=== PATIENT | female | born 1975 | race Caucasian/White ===

== ENCOUNTER → 2016-08-01 | Outpatient (CLI) | payer BC ==
[~2016-08-01] MED LIST: CETI10TA57 PO; CITA20TA4 PO; KETO-22 PO; NAPR220T29 PO; NITR100C3 PO; ONDA-42 SL; PHEN200T27 PO; TMSL.4C PO; TRM50T PO; [UNRECOGNIZED DRUG - CODE] PO
--- NOTE | 2016-08-01 16:54 | Diagnostic Imaging Report ---
INDICATION: Chronic pelvic pain. COMPARISON: None. DISCUSSION: Transabdominal and transvaginal sonographic evaluation of the pelvis was performed. There appear to be two endometrial horns present which could be seen with an arcuate, septate, or bicornate uterus. The uterus is mildly elongated measuring 11.3 x 7.3 x 6.6 cm. Partially exophytic posterior fibroid measures 2.3 x 2.3 x 3.7 cm. Normal endometrial thickness measuring 0.9 cm. The right ovary was not visualized, possibly obscured by bowel. The left ovary is normal in echotexture and size with normal color Doppler blood flow. The left ovary measures 3.2 x 2.8 x 3.8 cm. No abnormal adnexal mass or fluid. IMPRESSION: 1. Uterine fibroid. Mild enlargement of the uterus. Suspect underlying uterine anomaly. Dictated by: Dictated on workstation # [id number]
== END ==
LOC: RAD 15:20
PROVIDERS: ATTEND Obstetrics & Gynecology
DX: R10.2 Pelvic and perineal pain (principal); N94.5 Secondary dysmenorrhea; N93.8 Other specified abnormal uterine and vaginal bleeding; D25.1 Intramural leiomyoma of uterus; Z98.890 Other specified postprocedural states
CPT/HCPCS: 76830; 76856

== ENCOUNTER 2016-09-04 12:28 | Outpatient (CLI) | payer BC ==
[2016-09-04] MEDS ORDERED: CHOL30SP SL (12:40)
[2016-09-04] MEDS ORDERED: CHLO25TA22 PO (12:40)
[2016-09-04] MEDS ORDERED: CYAN250014 PO (12:40)
[2016-09-04] MEDS ORDERED: CYAN100097 SL (12:46)
[2016-09-04 13:11] LABS: EOSINOPHILS % (AUTO) 1 % (0-10); LYMPHOCYTES % (AUTO) 27 % (12-44); MEAN CORPUSCULAR HEMOGLOBIN 31 PG (25-34); MEAN CORPUSCULAR HGB CONC 33 G/DL (32-36); MEAN CORPUSCULAR VOLUME 95 FL (80-99); MEAN PLATELET VOLUME 9.2 FL (7.4-10.4); MONOCYTES % (AUTO) 7 % (0-12); NEUTROPHILS % (AUTO) 65 % (42-75); PLATELET COUNT 191 10^3/uL (130-400); RED BLOOD COUNT 4.12 10^6/uL (4.35-5.85); RED CELL DISTRIBUTION WIDTH 13.5 % (10.0-14.5); WHITE BLOOD COUNT 5.9 10^3/uL (4.3-11.0)
[2016-09-04 13:12] LABS: BASOPHILS % (AUTO) 0 % (0-10); EOSINOPHILS # (AUTO) 0.1 10^3/uL (0.0-0.3); LYMPHOCYTES # (AUTO) 1.6 X 10^3 (1.0-4.0); MONOCYTES # (AUTO) 0.4 X 10^3 (0.0-1.0); NEUTROPHILS # (AUTO) 3.8 X 10^3 (1.8-7.8)
[2016-09-07] MEDS ORDERED: OXYC-471 PO (13:58)
[2016-09-07] MEDS ORDERED: DOCU100C37 PO (13:58)
[2016-09-07] MEDS ORDERED: IBUP-1773 PO (13:58)
[2016-09-07] MEDS ORDERED: SIME80TA16 PO (13:58)
== END 2016-09-04 13:00 | disposition home or self-care (01) ==
LOC: PREOP 12:28
PROVIDERS: ATTEND Obstetrics & Gynecology
DX: Z01.812 Encounter for preprocedural laboratory examination (principal); Z11.2 Encounter for screening for other bacterial diseases; R10.2 Pelvic and perineal pain; D25.9 Leiomyoma of uterus, unspecified; N94.10 Unspecified dyspareunia
CPT/HCPCS: 36415; 84703; 85025; 86850; 86900; 86901; 87081

== ENCOUNTER 2016-09-07 09:30 | Day surgery (SDC) | payer BC ==
[~2016-09-07] VITALS: Ht 162.6 cm; Wt 100.2 kg
[~2016-09-07 09:30] MED LIST changes: +CHLO25TA22 PO; +CHOL30SP SL; +CYAN100097 SL; +CYAN250014 PO
--- OUTSIDE RECORDS SUMMARY | 2016-09-07 09:34 | XMS REPORT ---
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
--- OUTSIDE RECORDS SUMMARY | 2016-09-07 09:35 | XMS REPORT | Continuity of Care Document ---
Author Author [facility] Organization [facility] Address Unknown Phone Unavailable Allergies Active Description Code Type Severity Reaction Onset Reported/Identified Relationship to Patient Clinical Status Yes hydrocodone [id number] Drug Allergy Unknown N/A 06/23/2013 Yes tramadol [id number] Drug Allergy Unknown ITCHING 06/27/2013 Medications Problems Date Dx Coded Attending Type Code Diagnosis Diagnosed By 08/21/2014 ERNESTO AMES MD Ot 218.9 08/21/2014 ERNESTO AMES MD Ot 592.0 06/10/2015 SESAR CAMPOS MD Ot M54.2 06/10/2015 SESAR CAMPOS MD Ot M54.5 06/10/2015 SESAR CAMPOS MD Ot M54.6 06/23/2015 SESAR CAMPOS MD Ot M54.2 CERVICALGIA 06/23/2015 SESAR CAMPOS MD Ot M54.5 LOW BACK PAIN 06/23/2015 SESAR CAMPOS MD Ot M54.6 PAIN IN THORACIC SPINE 08/01/2016 ERNESTO AMES MD Ot 218.9 UTERINE LEIOMYOMA NOS 08/01/2016 KWAKU KOHLER, ERNESTO Carr Ot 592.0 CALCULUS OF KIDNEY 08/01/2016 SESAR CAMPOS MD Ot M54.2 CERVICALGIA 08/01/2016 SESAR CAMPOS MD Ot M54.5 LOW BACK PAIN 08/01/2016 SESAR CAMPOS MD Ot M54.6 PAIN IN THORACIC SPINE 08/04/2016 CAMDEN MTZ DO S Ot D25.1 INTRAMURAL LEIOMYOMA OF UTERUS 08/04/2016 CAMDEN MTZ DO S Ot N93.8 OTHER SPECIFIED ABNORMAL UTERINE AND VAG 08/04/2016 CAMDEN MTZ DO Ot N94.5 SECONDARY DYSMENORRHEA 08/04/2016 CAMDEN MTZ DO Ot R10.2 PELVIC AND PERINEAL PAIN 08/04/2016 CAMDEN MTZ DO Ot Z98.890 OTHER SPECIFIED POSTPROCEDURAL STATES 08/04/2016 FENECH DO, CAMDEN Jansen Ot D25.1 INTRAMURAL LEIOMYOMA OF UTERUS 08/04/2016 ALEXUSECH DO, CAMDEN S Ot N93.8 OTHER SPECIFIED ABNORMAL UTERINE AND VAG 08/04/2016 ALEXUSECH DOCAMDEN S Ot N94.5 SECONDARY DYSMENORRHEA 08/04/2016 ALEXUSECH DOCAMDEN S Ot R10.2 PELVIC AND PERINEAL PAIN 08/04/2016 FENECH DO, CAMDEN S Ot Z98.890 OTHER SPECIFIED POSTPROCEDURAL STATES 08/04/2016 ALXEUSECH DOCAMDEN S Ot D25.1 INTRAMURAL LEIOMYOMA OF UTERUS 08/04/2016 ALEXUSECH DO, CAMDEN S Ot N93.8 OTHER SPECIFIED ABNORMAL UTERINE AND VAG 08/04/2016 ALEXUSECH DO, CMADEN S Ot N94.5 SECONDARY DYSMENORRHEA 08/04/2016 ALEXUSECH DOCAMDEN Ot R10.2 PELVIC AND PERINEAL PAIN 08/04/2016 ALEXUSECH DOCAMDEN Ot Z98.890 OTHER SPECIFIED POSTPROCEDURAL STATES 08/16/2016 SMITH DOCAMDEN S Ot D25.1 INTRAMURAL LEIOMYOMA OF UTERUS 08/16/2016 ALEXUSECH DO, CAMDEN S Ot N93.8 OTHER SPECIFIED ABNORMAL UTERINE AND VAG 08/16/2016 ALEXUSECH DO, CAMDEN S Ot N94.5 SECONDARY DYSMENORRHEA 08/16/2016 ALEXUSECH DO, CAMDEN S Ot R10.2 PELVIC AND PERINEAL PAIN 08/16/2016 FENECH DO, CAMDEN Jansen Ot Z98.890 OTHER SPECIFIED POSTPROCEDURAL STATES Procedures Results Encounters ACCT No. Visit Date/Time Discharge Status Pt. Type Provider Facility Loc./Unit Complaint [id number] 07/16/2014 09:33:00 2014 23:59:59 CLS Outpatient KWAKU KOHLER, ERNESTO Del Tor[facility] RAD RIGHT FLANK PAIN [id number] 07/02/2013 14:04:00 2013 00:01:00 DIS Outpatient [id number] 07/01/2013 07:48:00 2013 12:20:00 DIS Outpatient [id number] 06/27/2013 12:47:00 2013 23:59:59 CLS Outpatient [id number] 06/25/2013 09:19:00 2013 23:59:59 CLS Outpatient [id number] 06/23/2013 01:23:00 2013 03:07:00 DIS Emergency [id number] 09/07/2016 11:00:00 [facility]EN [facility]read[facility],FIBROIDS,DYSMENORRHEA [id number] 09/04/2016 12:30:00 PEN Preadmit CAMDEN MTZ DO [facility] PREOP ROBOTIC HYSTERECTOMY POSS. BSO [id number] 08/01/2016 15:20:00 ACT Outpatient CAMDEN MTZ DO [facility] RAD R10.2 CHRONIC PELVIC PAIN [id number] 06/10/2015 12:16:00 ACT Outpatient BETH KOHLER, SESAR Hurtado [facility] RAD NECK PAIN, LBP, THORACIALGIA,SCIATICA
[2016-09-07] MEDS ORDERED: ceFAZolin 2 GM/NS 50 ML IV ONE (09:45)
[2016-09-07] MEDS ORDERED: metroNIDAZOLE 500 MG/100 ML IVPB (PRE-MIX) IV ONE (09:45)
[2016-09-07] MEDS ORDERED: CATHETER FLUSH 10 ML SYR IV PRN (09:45)
[2016-09-07 09:58] VITALS: BP 140/98
[2016-09-07] MEDS: LACTATED RINGERS 1,000 ML IV PRN ×3 (10:05→14:10)
[2016-09-07] MEDS ORDERED: MIDAZOLAM 2 MG/2 ML (VERSED) VIAL IV ONE (10:15)
[2016-09-07] MEDS ORDERED: ONDANSETRON 4 MG/2 ML (SDV) Z0FRAN IV ONE (10:15)
--- NOTE | 2016-09-07 10:41 | Progress Note-Pre Operative ---
Pre-Operative Progress Note H&P Reviewed The H&P was reviewed, patient examined and no changes noted. Date Seen by Provider: Sep 07, 2016 Time Seen by Provider: 10:40 Date H&P Reviewed: Sep 07, 2016 Time H&P Reviewed: 10:30 Pre-Operative Diagnosis: Dyspareunia, Dysmenorrhea, Bicornuate Uterus, Secondary Dysmenorrhea,BMI 38 CAMDEN MTZ DO Sep 07, 2016 10:41 am
[2016-09-07] MEDS ORDERED: fentaNYL INJECTION 100 MCG/2 ML AMP ONE ×2 (11:20→12:21)
[2016-09-07] MEDS ORDERED: BUPIVACAINE 0.25% 30 ML (SENSORCAINE) VIAL ONE (11:20)
[2016-09-07] MEDS ORDERED: MIDAZOLAM 2 MG/2 ML (VERSED) VIAL ONE (11:20)
[2016-09-07] MEDS ORDERED: SEVOFLURANE (ULTANE) 15 ML INHAL SOLN ONE ×8 (11:22→13:57)
[2016-09-07] MEDS ORDERED: proPOfol 200 MG/20 ML (DIPRIVAN) VIAL IV ONE (11:22)
[2016-09-07] MEDS ORDERED: LIDOCAINE 2% 20 ML (XYLOCAINE) VIAL ONE (11:22)
[2016-09-07] MEDS ORDERED: DEXAMETHASONE PF 10 MG/ML (DECADRON) VIAL ONE (11:22)
[2016-09-07] MEDS ORDERED: ROCURONIUM 50 MG/5 ML (ZEMURON) VIAL IV ONE (11:33)
[2016-09-07] MEDS ORDERED: morphine INJ 10 MG/ML 1ML (SYR OR VIAL) ONE (13:41)
--- NOTE | 2016-09-07 13:56 | Discharge Inst-Women's Service ---
Discharge Inst-Women's Serv Depart Medication/Instructions New, Converted or Re-Newed RX: RX on Chart Consults/Follow Up Additional Follow Up: Yes Orders/Referrals Dr. Little in 7-10 days and in 8 weeks Activity Activity: Activity as Tolerated Driving Instructions: No Driving for 1 Week NO SMOKING: NO SMOKING Nothing Inside Vagina: No Douching, No Anthon, No Tampons Diet Discharge Diet: No Restrictions Symptoms to Report to : Bleeding Excessive, Pain Increased, Fever Over 101 Degrees F, Vaginal Bleeding Increase, Questions/Concerns For Any Problems or Questions: Contact Your Physician Skin/Wound Care Infection Signs and Symptoms: Increased Redness, Foul Odor of Wound, Increased Drainage, Skin Itchy or Has a Rash, Increased Swelling, Temperature Above 101 F Stitches/Gely/Dermabond: Dermabond, Care of Stitches Bathing Instructions: CAMDEN Lazo DO Sep 07, 2016 13:56
[2016-09-07] MEDS ORDERED: DOCU100C37 PO (13:58)
[2016-09-07] MEDS ORDERED: IBUP-1773 PO (13:58)
[2016-09-07] MEDS ORDERED: OXYC-471 PO (13:58)
[2016-09-07] MEDS ORDERED: SIME80TA16 PO (13:58)
[2016-09-07] MEDS ORDERED: ONDANSETRON 4 MG/2 ML (SDV) Z0FRAN IV PRN (14:00)
[2016-09-07] MEDS ORDERED: SIMETHICONE 80 MG (MYLICON) CHEW PO PRN (14:00)
[2016-09-07] MEDS ORDERED: DOCUSATE SODIUM 100 MG (COLACE) CAP PO PRN (14:00)
[2016-09-07] MEDS ORDERED: ZOLPIDEM 5 MG (AMBIEN) TAB PO PRN (14:00)
[2016-09-07] MEDS ORDERED: fentaNYL INJECTION 100 MCG/2 ML AMP IVP PRN (14:00)
[2016-09-07] MEDS ORDERED: MEPERIDINE (DEMEROL) INJ 50 MG/ML IVP PRN (14:00)
[2016-09-07] MEDS ORDERED: CHLORASEPTIC LOZENGE MM PRN (14:00)
[2016-09-07] MEDS ORDERED: ANTACID SUSP 30 ML UDC (MYLANTA) PO PRN (14:00)
[2016-09-07] MEDS: morphine INJ 10 MG/ML 1ML (SYR OR VIAL) IVP PRN ×2 (14:06→14:13)
[2016-09-07] MEDS ORDERED: PROMETHAZINE INJ 25 MG/ML (PHENERGAN) AMP ONE (14:08)
[2016-09-07] MEDS: PROMETHAZINE INJ 25 MG/ML (PHENERGAN) AMP IVP PRN ×2 (14:15→14:43)
--- NOTE | 2016-09-07 14:20 | Progress Note-Post Operative ---
Post-Operative Progess Note Surgeon (s)/Mustanger (s) Surgeon CAMDEN MTZ DO Mustanger: Marta ePña Pre-Operative Diagnosis Dyspareunia, Dysmenorrhea, Bicornuate Uterus, Secondary Dysmenorrhea,BMI 38 Post-Operative Diagnosis Enlarged uterus Procedure & Operative Findings Date of Procedure 09/07/16 Procedure Performed/Findings Patient was taken to the operating room where general anesthesia was found to be adequate. She is placed in dorsal lithotomy position prepped and draped in the normal sterile fashion. A timeout was performed and a Liang catheter was placed using sterile technique. Bimanual examination revealed a enlarged uterus proximal told to 14 week size no adnexal fullness or masses appreciated. A weighted speculum was inserted patient's vagina and a right angled retractor is used to visualize the cervix. It is grasped at the 12 o'clock position using a long Allis clamp. I then gently sound the uterine cavity was 8 cm I then selected an 8 cm Mahsa uterine manipulator tip and a 3-1/2 a colpotomy ring and advance this into the uterus deploying the endometrial balloon and advancing the colpotomy ring around the vaginal fornix. I then removed all other attachments from the patient's vagina, perform a change of gloves and take my attention to the abdomen. Here I infiltrate the infraumbilical area using quarter percent Marcaine, make an 8 mm incision with a knife, and direct a varies needle through the incision until intraperitoneal placement was confirmed using the saline drop test. I then recognize a pressure of 2 mmHg, using CO2 gas I infiltrate to a pressure of 15 mmHg at which point I removed the varies needle and introduce 88 mm blunt da Javier camera trocar. Once this is in place unable to confirm intraperitoneal placement using the da Javier laparoscope. I then placed 2 lateral trochars approximate 8 cm lateral to my infraumbilical trocar, and the skin is infiltrated using quarter percent Marcaine, incision is made with the knife, and the trochars are directed under direct visualization of the laparoscope. Once the trochars in place and the patient placed in steep Trendelenburg and and able to visualize all the planes of dissection to perform the procedure. The uterus is bulky and enlarged, the right adnexa is absent no fallopian tube and ovary. The left ovary is grossly normal on inspection, the left fallopian tube appears normal as well. The da Javier robot is brought in and docked in the appropriate fashion. I placed the vessel sealer and the left hand and monopolar gail in the right hand. I then take my place at the operative console, and performed the following dissection bilaterally. Starting at the round ligament I bipolar cauterized this and transected using the vessel sealer. On the left side I created a window in the mesosalpinx and take this dissection amputating the blood supply of the fallopian tube distally to the ampullary distal tip of the fallopian tube. I then grasped the utero-ovarian ligament on the left bipolar cauterized this and transected using the vessel sealer. On both sides I grasped the broad ligament bipolar cauterized and transected using the vessel sealer down to the level of the lower uterine segment. At this point I separate the anterior posterior leaflets of the broad ligament. The anterior leaflet is taken around to the anterior vaginal fornix, the posterior leaflet was taken down to the posterior vaginal fornix. I didn't perform a colpotomy at 12 and 6 o'clock using the monopolar gail. This allows me to skeletonize the uterine vessels which were then bipolar cauterized and transected using the vessel sealer. I then proceed with my colpotomy circumferentially using the monopolar gail amputating the cervix away from the vaginal fornix. The entire uterus and left fallopian tube were then removed through the vagina without difficulty. I then closed the vaginal cuff using 2-0 Vicryl suture in a [id number] fashion in the lateral vaginal apices, colposuspension in them to the uterosacral ligaments. The remainder of the vaginal cuff is closed using 20V lock in running fashion. There is no active bleeding noted from any my dissection planes, at which point I undocked the da Javier robot remove its instruments and proceed with the remainder of the case laparoscopically. I copiously irrigated the pelvis using normal saline as no active bleeding noted from any my dissection planes. I placed FloSeal hemostatic agent overall my planes of dissection and have the patient taken out of steep Trendelenburg. At which point I removed the lateral trochars under direct visualization of the laparoscope. The infraumbilical trocar is left in place to release insufflation and to introduce 10 mL's of quarter percent Marcaine into the peritoneum for postoperative pain management. This trocar is then removed, all 3 sites are then closed using 4-0 Monocryl and interrupted subcuticular stitches and then covered by Dermabond. Band-Aids are placed over these incisions. Liang catheter is left in place. The patient tolerated the procedure well and was taken to the recovery area in stable condition. Lap and sponge count is correct at the end of the procedure instrument count is correct as well. 2 g of Ancef and 500 mg of Flagyl given preoperatively for infection prophylaxis. Anesthesia Type GETA Estimated Blood Loss Estimated blood loss (mL): 50 Specimens/Packing Specimens Removed uterus left fallopian tube CAMDEN MTZ DO Sep 07, 2016 14:20
[2016-09-07 15:27] VITALS: BP 134/89
[2016-09-07] MEDS: LACTATED RINGERS 1,000 ML IV SCH ×2 (17:12→20:06)
[2016-09-07 17:17] VITALS: BP 136/84
[2016-09-07] MEDS: KETOROLAC 30 MG/ML VIAL IV PRN (18:45)
[2016-09-07 20:45] VITALS: BP 98/56
[2016-09-07] MEDS: oxyCODONE/APAP 5/325MG (PERCOCET 5) TABLET PO PRN (23:41)
[2016-09-08] MEDS: KETOROLAC 30 MG/ML VIAL IV PRN (00:54)
[2016-09-08 00:56] VITALS: BP 111/65
[2016-09-08 04:17] VITALS: BP 124/66
[2016-09-08] MEDS: LACTATED RINGERS 1,000 ML IV SCH (06:07)
[2016-09-08] MEDS ORDERED: IBUPROFEN 600 MG (MOTRIN) TAB PO PRN (06:30)
[2016-09-08 07:55] VITALS: BP 109/72
[2016-09-08] MEDS: oxyCODONE/APAP 5/325MG (PERCOCET 5) TABLET PO PRN (08:18)
[2016-09-08 09:25] VITALS: BP 109/72
== END 2016-09-08 09:25 | disposition home or self-care (01) ==
LOC: SDC 09:30 → WS 14:55 → SDC 09-08 09:25
PROVIDERS: ATTEND Obstetrics & Gynecology
DX: N94.10 Unspecified dyspareunia; Q51.3 Bicornate uterus; D25.1 Intramural leiomyoma of uterus; E66.9 Obesity, unspecified; F32.9 Major depressive disorder, single episode, unspecified; Z79.899 Other long term (current) drug therapy; Z68.38 Body mass index [BMI] 38.0-38.9, adult; N94.5 Secondary dysmenorrhea
CPT/HCPCS: 88307; 94664; 96361; 96375; 96376

== ENCOUNTER → 2019-12-19 | Outpatient (CLI) | payer BC ==
[~2019-12-19] MED LIST changes: +DOCU100C37 PO; +IBUP-1773 PO; +OXYC-471 PO; +SIME80TA16 PO
--- NOTE | 2019-12-19 10:29 | Diagnostic Imaging Report ---
Indication: Routine screening. No prior mammogram is available for comparison. This is a baseline study. 2-D and 3-D bilateral screening mammography was performed with CAD. Scattered fibroglandular densities are identified bilaterally. No mass or malignant appearing microcalcifications are seen. Axillae are unremarkable. IMPRESSION: BI-RADS Category 1 No mammographic features suspicious for malignancy are identified. ACR BI-RADS Category 1: Negative. Result letter will be mailed to the patient. Note: At least 10% of breast cancer is not imaged by mammography. Dictated by: Dictated on workstation # [id number]
== END ==
LOC: RAD 08:30
PROVIDERS: ATTEND Obstetrics & Gynecology
DX: Z12.31 Encounter for screening mammogram for malignant neoplasm of breast (principal)
CPT/HCPCS: 77063; 77067

== ENCOUNTER 2020-09-05 13:35 | Emergency (ER) | payer BC ==
[~2020-09-05] VITALS: Ht 162 cm; Wt 99.7 kg
[~2020-09-05 13:35] MED LIST changes: -OXYC-471 PO; +OXYC1TAB11 PO
[2020-09-05 14:13] LABS: BASOPHILS % (AUTO) 1 % (0-10); EOSINOPHILS % (AUTO) 1 % (0-10); HEMATOCRIT 41 % (35-52); HEMOGLOBIN 13.6 g/dL (11.5-16.0); LYMPHOCYTES # (AUTO) 1.3 10^3/uL (1.0-4.0); LYMPHOCYTES % (AUTO) 24 % (12-44); MEAN CORPUSCULAR HEMOGLOBIN 32 pg (25-34); MEAN CORPUSCULAR HGB CONC 33 g/dL (32-36); MEAN CORPUSCULAR VOLUME 95 fL (80-99); MEAN PLATELET VOLUME 9.4 fL (9.0-12.2); MONOCYTES # (AUTO) 0.4 10^3/uL (0.0-1.0); MONOCYTES % (AUTO) 7 % (0-12); NEUTROPHILS # (AUTO) 3.8 10^3/uL (1.8-7.8); NEUTROPHILS % (AUTO) 68 % (42-75); PLATELET COUNT 224 10^3/uL (130-400); WHITE BLOOD COUNT 5.6 10^3/uL (4.3-11.0)
[2020-09-05] MEDS ORDERED: LACTATED RINGERS 1,000 ML IV SCH (14:15)
[2020-09-05] MEDS ORDERED: IOHEXOL 350 MG/ML 100 ML (OMNIPAQUE 350) VIAL IV ONE (14:15)
[2020-09-05] MEDS ORDERED: HOLD METFORMIN - RECEIVED CONTRAST 20 ML VIAL IV SCH (14:15)
[2020-09-05] MEDS ORDERED: NS 100 ML (IVPB) BAG IV ONE (14:15)
[2020-09-05] MEDS ORDERED: CATHETER FLUSH 10 ML SYR IV PRN (14:15)
[2020-09-05 14:18] LABS: CHLORIDE 106 MMOL/L (98-107); POTASSIUM 3.3 MMOL/L (3.6-5.0); SODIUM 144 MMOL/L (135-145)
[2020-09-05 14:19] LABS: CALCIUM 9.4 MG/DL (8.5-10.1); GLUCOSE 109 MG/DL (70-105)
[2020-09-05 14:21] LABS: CARBON DIOXIDE 24 MMOL/L (21-32)
[2020-09-05 14:23] LABS: CREATININE SERUM 0.73 MG/DL (0.60-1.30); GFR ESTIMATED > 60
[2020-09-05 14:24] LABS: BUN/CREATININE RATIO 16
--- NOTE | 2020-09-05 14:31 | ED EENT ---
History of Present Illness General Chief Complaint: Eye Problems Stated Complaint: R EYE REDNESS/PAIN Nursing Triage Note: PT PRESENTS TO ED WITH COMPLAITNS OF R EYE REDNESS AND L PUPIL DILATED AND SLUGGISH. PT DOES REPORTS SHE HIT HER R EYE SUNDAY. Source: patient Exam Limitations: no limitations (YEIMI HARRISON APRN) History of Present Illness Date Seen by Provider: Sep 05, 2020 Time Seen by Provider: 14:24 Initial Comments To ER with left pupillary dilation. She was struck in the right eye yesterday while helping her . She was struck by a piece of equipment and had minimal discomfort at the time, noticed a subconjunctival hemorrhage later in the evening. Has some faint discomfort in the right eye very mild. She wears glasses and cannot typically see very well without them. 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 She is not so worried about the right eye knowing that it is only a subconjunctival hemorrhage but the left eye being dilated is concerning. She has had headaches for the past few weeks with a h istory longstanding of hypertension. However she was started on chlorthalidone and Norvasc about a month ago and for the past 2 weeks has been headache free. No other neurologic deficit that she has noticed. Timing/Duration: abrupt Severity: moderate Location: eye (L) Prearrival Treatment: no prearrival treatment Associated Symptoms: denies symptoms (YEIMI HARRISON APRN) Allergies and Home Medications Allergies Coded Allergies: hydrocodone (Unverified Allergy, Unknown, 06/23/13) sulfamethoxazole (Verified Allergy, Unknown, NAUSEA, 09/04/16) tramadol (Unverified Allergy, Unknown, ITCHING , 06/27/13) trimethoprim (Verified Allergy, Unknown, NAUSEA, 09/04/16) Home Medications Cetirizine Hcl 10 Mg Tablet, 10 MG PO PRN PRN for ALLERGIES, (Reported) Chlorthalidone 25 Mg Tablet, 25 MG PO DAILY, (Reported) Cholecalciferol (Vitamin D3) 30 Ml Guild.susp, 30 ML SL DAILY, (Reported) Cyanocobalamin (Vitamin B-12) 1,000 Mcg/1 Ml Drops, 1,000 MCG SL DAILY, (Reported) Docusate Sodium 100 Mg Capsule, 100 MG PO BID PRN for CONSTIPATION-1ST LINE Prescribed by: CAMDEN MTZ on 09/07/161357 Ibuprofen 600 Mg Tablet, 600 MG PO Q6H PRN for PAIN-MODERATE Prescribed by: CAMDEN MTZ on 09/07/161357 Oxycodone HCl/Acetaminophen 1 Each Tablet, 2 TAB PO Q4H PRN for PAIN-MODERATE Prescribed by: CAMDEN MTZ on 09/07/161357 Simethicone 80 Mg Tab.chew, 40 MG PO TID PRN for INDIGESTION 2ND LINE Prescribed by: CAMDEN MTZ on 09/07/161357 Patient Home Medication List Home Medication List Reviewed: Yes (YEIMI HARRISON APRN) Review of Systems Review of Systems Constitutional: see HPI Eyes: See HPI Ears: No Symptoms Reported Nose: no symptoms reported Mouth: no symptoms reported Throat: no symptoms reported Respiratory: no symptoms reported Cardiovascular: no symptoms reported Musculoskeletal: no symptoms reported Skin: no symptoms reported Neurological: No Symptoms Reported Hematologic/Lymphatic: No Symptoms Reported (YEIMI HARRISON APRN) Past Oihpxng-Vzipwd-Vuxfag Hx Patient Social History Tobacco Use?: No Substance use?: No Alcohol Use?: No Pt feels they are or have been: No (YEIMI HARRISON APRN) Seasonal Allergies Seasonal Allergies: Yes (SOMETIMES) (YEIMI HARRISON APRN) Past Medical History Section Hypertension Reproductive Disorders: Yes Sexually Transmitted Disease: No HIV/AIDS: No Kidney Stones Anxiety, Depression Adverse Reaction/Blood Tranf: No (YEIMI HARRISON APRN) Physical Exam Vital Signs Vital Signs - First Documented 09/05/20 13:42 Pulse 90 Resp 20 B/P (MAP) 177/119 (138) Pulse Ox 97 (MARCI HERRERA MD) Height, Weight, BMI Height: 5'4.00" Weight: 221lbs. 0.0oz. 100.242172jg; 37.00 BMI Method: General Appearance: WD/WN, no apparent distress Eyes: left eye other (The left pupil is dilated at about 6 mm though it is reactive to light. To the lateral aspect of the right eye beginning at the limbus and extending laterally and inferiorly down to the lateral canthus is a subconjunctival hemorrhage. There is no hyphema. The right pupil is also reactive and there is not any photophobia. Extraocular muscles are intact.); bilateral eye PERRL, bilateral eye EOMI Ears: bilateral ear auricle normal, bilateral ear canal normal, bilateral ear TM normal Neck: non-tender, full range of motion Respiratory: no respiratory distress, no accessory muscle use Neurologic/Psychiatric: alert, normal mood/affect, oriented x 3 Skin: normal color, warm/dry (YEIMI HARRISON APRN) Progress/Results/Core Measures Results/Orders Lab Results Laboratory Tests Test 09/05/20 13:52 Range/Units White Blood Count 5.6 4.3-11.0 10^3/uL Red Blood Count 4.29 3.80-5.11 10^6/uL Hemoglobin 13.6 11.5-16.0 g/dL Hematocrit 41 35-52 % Mean Corpuscular Volume 95 80-99 fL Mean Corpuscular Hemoglobin 32 25-34 pg Mean Corpuscular Hemoglobin Concent 33 32-36 g/dL Red Cell Distribution Width 13.4 10.0-14.5 % Platelet Count 224 130-400 10^3/uL Mean Platelet Volume 9.4 9.0-12.2 fL Immature Granulocyte % (Auto) 0 % Neutrophils (%) (Auto) 68 42-75 % Lymphocytes (%) (Auto) 24 12-44 % Monocytes (%) (Auto) 7 0-12 % Eosinophils (%) (Auto) 1 0-10 % Basophils (%) (Auto) 1 0-10 % Neutrophils # (Auto) 3.8 1.8-7.8 10^3/uL Lymphocytes # (Auto) 1.3 1.0-4.0 10^3/uL Monocytes # (Auto) 0.4 0.0-1.0 10^3/uL Eosinophils # (Auto) 0.0 0.0-0.3 10^3/uL Basophils # (Auto) 0.0 0.0-0.1 10^3/uL Immature Granulocyte # (Auto) 0.0 0.0-0.1 10^3/uL Sodium Level 144 135-145 MMOL/L Potassium Level 3.3 L 3.6-5.0 MMOL/L Chloride Level 106 98-107 MMOL/L Carbon Dioxide Level 24 21-32 MMOL/L Anion Gap 14 5-14 MMOL/L Blood Urea Nitrogen 12 7-18 MG/DL Creatinine 0.73 0.60-1.30 MG/DL Estimat Glomerular Filtration Rate > 60 BUN/Creatinine Ratio 16 Glucose Level 109 H 70-105 MG/DL Calcium Level 9.4 8.5-10.1 MG/DL (MARCI HERRERA MD) Medications Given in ED Current Medications Medications Dose Ordered Sig/Naun Route Start Time Stop Time Status Last Admin Dose Admin Balanced Salt Solution 15 ml ONCE ONCE IR 09/05/20 15:45 09/05/20 15:46 DC 09/05/20 15:49 15 ML Fluorescein Sodium 1 mg ONCE ONCE OU 09/05/20 15:45 09/05/20 15:46 DC 09/05/20 15:48 1 MG Iohexol 100 ml ONCE ONCE IV 09/05/20 14:15 09/05/20 14:16 DC 09/05/20 14:51 75 ML Sodium Chloride 10 ml NEEDED PRN IV 09/05/20 14:15 09/05/20 16:04 DC 09/05/20 14:51 10 ML Sodium Chloride 100 ml ONCE ONCE IV 09/05/20 14:15 09/05/20 14:16 DC 09/05/20 14:51 80 ML Tetracaine HCl 1 OR 2 DROPS INTO AFFEC... ONCE ONCE OP 09/05/20 15:45 09/05/20 15:46 DC 09/05/20 15:49 4 ML (MARCI HERRERA MD) Vital Signs/I&O 09/05/20 09/05/20 13:42 16:01 Pulse 90 80 Resp 20 20 B/P (MAP) 177/119 (138) 154/103 (138) Pulse Ox 97 98 (MARCI HERRERA MD) Blood Pressure Mean: 138 Diagnostic Imaging Diagonstic Imaging: CT Comments NAME: DMITRIY PE[facility]SON [facility] REC#: [id number] PT STATUS: REG ER : 1975 PHYSICIAN: YEIMI HARRISON APRN ADMIT DATE: 09/05/20/ER Draft Date of Exam:09/05/20 CT ANGIO HEAD W WO Procedure: CT angiography of the head with and without contrast. Technique: Noncontrast CT of the head was obtained. Subsequently, after intravenous administration of contrast, thin section axial CT angiography of the head was performed. Source data was reformatted into multiple MIP reformats. Delayed postcontrast acquisition of the head was also acquired. Auto Exposure Controls were utilized during the CT exam to meet ALARA standards for radiation dose reduction. Indication: Right sided eye redness with dilated left pupil which is sluggish, right-sided eye injury Sunday. Comparison: None. Discussion: CT head: No acute intracranial hemorrhage, mass, midline shift, or hydrocephalus. The ventricles and sulci are normal size and configuration for age. The visualized portions of the orbits, paranasal sinuses, mastoid air cells, and calvarium are unremarkable. CTA head: Intracranial arterial luminal enhancement and morphology are normal without focal stenosis, major vessel cut off, aneurysm, or vascular malformation. The morongo of Antoine is complete. Visualized venous structures are unremarkable. Impression: Unremarkable CTA of the head. No acute intracranial abnormality identified. The orbits appear symmetrical. Dictated on workstation # [id number] Dict: 09/05/20 1519 Trans: 09/05/20 1529 [facility] [id number] Interpreted by: LUIS EDUARDO DEL TORO MD Electronically signed by: (YEIMI HARRISON APRN) Departure Communication (Admissions) Discussed with Rory Gonzalez from optometry. He feels that this is likely the right eye being the abnormal one and being constricted rather than the left dilated pupil. It is likely that since the right eye that has the subconjunctival hemorrhage it also has a bit of iritis as well contributing to a more constricted pupil on the right. He recommends Pred forte 3 times daily and he will follow up with the patient in the clinic this week. 1555-right intraocular pressure is 24 left is 21. No hyphema. Given Pred forte drops here. No corneal abrasion. (YEIMI HARRISON APRN) Impression Primary Impression: Anisocoria Additional Impression: Traumatic iritis Disposition: HOME, SELF-CARE Condition: Stable Departure-Patient Inst. Decision time for Depature: 15:09 (YEIMI HARRISON APRN) Referrals: SESAR CAMPOS MD (PCP/Family) Primary Care Physician Add. Discharge Instructions: Call Dr Capps for follow up on sunday. Use the pre-forte two drops TID x3 days. Return to ER for worsening. All discharge instructions reviewed with patient and/or family. Voiced understanding. ATTENDING PHYSICIAN NOTE: I was physically present as attending physician in the emergency department during the care of this patient, but I was not directly involved in the decision making or delivery of care for this patient. (MARCI HERRERA MD) Copy Copies To 1: RAMSEY GONZALEZ OD, PETER J APRN Sep 05, 2020 14:31 MARCI HERRERA MD Sep 05, 2020 18:45
--- NOTE | 2020-09-05 15:29 | Diagnostic Imaging Report ---
Procedure: CT angiography of the head with and without contrast. Technique: Noncontrast CT of the head was obtained. Subsequently, after intravenous administration of contrast, thin section axial CT angiography of the head was performed. Source data was reformatted into multiple MIP reformats. Delayed postcontrast acquisition of the head was also acquired. Auto Exposure Controls were utilized during the CT exam to meet ALARA standards for radiation dose reduction. Indication: Right sided eye redness with dilated left pupil which is sluggish, right-sided eye injury Sunday. Comparison: None. Discussion: CT head: No acute intracranial hemorrhage, mass, midline shift, or hydrocephalus. The ventricles and sulci are normal size and configuration for age. The visualized portions of the orbits, paranasal sinuses, mastoid air cells, and calvarium are unremarkable. CTA head: Intracranial arterial luminal enhancement and morphology are normal without focal stenosis, major vessel cut off, aneurysm, or vascular malformation. The [place] is complete. Visualized venous structures are unremarkable. Impression: Unremarkable CTA of the head. No acute intracranial abnormality identified. The orbits appear symmetrical. Dictated by: Dictated on workstation # [id number]
[2020-09-05] MEDS ORDERED: prednisoLONE 1% OPTH (PRED FORTE) 5 ML BTL OU SCH (15:45)
[2020-09-05] MEDS ORDERED: BSS 15 ML IR ONE (15:45)
[2020-09-05] MEDS ORDERED: TETRACAINE 0.5% OPHTH SOLN 4 ML BTL (SINGLE DOSE ONLY) OP ONE (15:45)
[2020-09-05] MEDS ORDERED: FLUORESCEIN (FLUOR-I-STRIPS) 1 MG STRP OU ONE (15:45)
[2020-09-05 16:01] VITALS: BP 154/103
== END 2020-09-05 16:01 | disposition home or self-care (01) ==
LOC: EDUNIT# 13:35 → ER 13:37
DX: H57.02 Anisocoria (principal); H20.9 Unspecified iridocyclitis; I10 Essential (primary) hypertension
CPT/HCPCS: 36415; 70496; 80048; 85025

== ENCOUNTER → 2022-07-12 | Outpatient (CLI) | payer BC ==
--- NOTE | 2022-07-12 10:12 | Diagnostic Imaging Report ---
INDICATION: Left breast lump. COMPARISON: 12/19/2019. TECHNIQUE: 2D and 3D bilateral diagnostic mammography was performed with CAD. FINDINGS: A BB marker was placed at the area of palpable abnormality in the lower slightly inner aspect of the left breast. Both breasts are heterogeneously dense, limiting the sensitivity of mammography. No dominant mass or malignant-appearing microcalcifications are seen. The axillae are unremarkable. IMPRESSION: No mammographic features suspicious for malignancy are identified. Even so, directed sonographic interrogation of the area of palpable lump in the left breast is recommended and will be performed today. ACR BI-RADS Category 0: Incomplete. (Needs additional imaging evaluation). Result letter will be mailed to the patient. Note: At least 10% of breast cancer is not imaged by mammography. Dictated by: Dictated on workstation # [id number]
--- NOTE | 2022-07-12 10:35 | Diagnostic Imaging Report ---
INDICATION: Palpable lump left breast. COMPARISON: Correlation is made with the diagnostic mammogram from earlier this same day. TECHNIQUE/FINDINGS: Sonographic interrogation of the lower slightly inner left breast at the 7 to 8 o'clock location was performed. No sonographic abnormality is detected. No solid or cystic mass is detected. IMPRESSION: No sonographic abnormality is detected. ACR BI-RADS Category 1: Negative. Result letter will be mailed to the patient. Note: At least 10% of breast cancer is not imaged by mammography. Dictated by: Dictated on workstation # [id number]
== END ==
LOC: RAD 09:29
PROVIDERS: ATTEND Nurse Practitioner Women's Health
DX: N63.20 Unspecified lump in the left breast, unspecified quadrant (principal)
CPT/HCPCS: 76642; 77066; G0279; 77062